=== PATIENT | female | born 1980 | race Caucasian/White ===

== ENCOUNTER 2018-07-30 06:55 | Day surgery (SDC) | payer OTHER ==
--- NOTE | 2018-07-29 18:02 | PDGENHP ---
History and Physical - Chief Complaint pre-op for laparoscopic right ovarian cystectomy, bilateral salpingectomy - History of Present Illness 37 A1 with a complex right ovarian cyst which has been increasing in size. Initially seen 10/29/2017 - to get IUD removed - no strings. US showed IUD embedded in uterine wall. R ovary noted to have 2 cysts or a septated cyst. 12/02/17 IUD removed with US guidance. R ov still with 2 cysts or a septated cyst, 7.8 x 5.2 x 7.4cm. 04/16/18 [facility] done at [facility] - R ov cyst 5.2 x 5.4 x 6.7cm cyst with thin internal septations and reticular densities - suggestive of complex hemorrhagic cyst. 06/17/18 US at [facility] - R ov cyst 9.5 x 6.0 x 4.7cm complex. L ov with 1.4 x 1.6 x 1.9cm isoechoic nodule. No free fluid. After continued observation, due to increasing size of cyst - agrees to proceed with surgical removal of cysts. Due to family hx of ovarian cancer - pAunt with ovarian cancer, and myah GEORGES with breast cancer, pt desires oncoreduction with tubal removal, and she is 100 % done with childbearing. She has 2 children, ages 5 and 6. History Information - Allergies/Home Medication List Allergies/Adverse Reactions: penicillin V [Penicillin V] Allergy (Unknown, Verified 07/29/18 16:23) Home Medications: 1 tab PO DAILY 01/07/13 [Last Taken Unknown] Feosol 1 tab PO DAILY 04/27/13 [Last Taken Unknown] Probiotic 1 cap PO DAILY 04/27/13 [Last Taken Unknown] I have personally reviewed and updated: family history, medical history, social history, surgical history - Past Medical History no pertinent PMH - Surgical History Additional surgical history: C/S x2. TAB x 1 - Family History Additional family history: P Aunt ovarian cancer in her 20s. Father - brain cancer. 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 Review of Systems Review of Systems: ROS: 10pt was reviewed & negative except for what was stated in HPI & below Physical Exam Physical Exam: wt 99.8 lb 122/80 98.4 82 HR 90% on RA Constitutional: no apparent distress, appears nourished Eyes: PERRL, anicteric sclera, EOMI Ears, Nose, Mouth, Throat: moist mucous membranes, hearing normal, ears appear normal Cardiovascular: regular rate and rhythym Respiratory: no respiratory distress, no rales or rhonchi, clear to auscultation Gastrointestinal: normoactive bowel sounds, soft, non-tender abdomen, no palpable masses Genitourinary: no bladder fullness Skin: warm, normal color Musculoskeletal: full muscle strength Neurologic: AAOx3, sensation intact bilaterally Lab Data & Imaging Review 14.7 / 42.6 plt 194 Assessment & Plan Assessment: 37 A1 with persistent complex R ovarian cyst, L ov with 1.9cm isoechoic nodule, family history of ovarian cancer. Plan: laparoscopic R ovarian and L ovarian cystectomy and bilateral salpingectomy on 07/30/18. Written informed consent obtained. Printed pre and post surg info given including ERAS protocol. Romana Hui MD, FACOG
[2018-07-30] MEDS ORDERED: LR 1,000 ML IV ONE (07:09)
[2018-07-30] MEDS ORDERED: BUPIVACAINE/EPI 0.25% 30 ML SDV ONE (07:45)
[2018-07-30] MEDS ORDERED: SILVER NITRATE APPLICATOR 1 APPL TP ONE (07:45)
[2018-07-30] MEDS ORDERED: MIDAZOLAM 2 MG/2 ML VIAL ONE (08:03)
[2018-07-30] MEDS ORDERED: MIDAZOLAM 2 MG/2 ML VIAL IVP ONE (08:03)
--- NOTE | 2018-07-30 08:03 | PDANEPAE ---
ANE History of Present Illness ovarian cyst and pelvic pain, here for laparoscopic removal of ovaries, tubes ANE Past Medical History - Cardiovascular History Hx Hypertension: No Hx Arrhythmias: No Hx Chest Pain: No Hx Coronary Artery / Peripheral Vascular Disease: No Hx CHF / Valvular Disease: No Hx Palpitations: No - Pulmonary History Hx COPD: No Hx Asthma/Reactive Airway Disease: No Hx Recent Upper Respiratory Infection: No Hx Oxygen in Use at Home: No Hx Sleep Apnea: No Sleep Apnea Screening Result - Last Documented: Negative Pulmonary History Comment: SEASONAL ALLERGIES - Neurologic History Hx Cerebrovascular Accident: No Hx Seizures: No Hx Dementia: No - Endocrine History Hx Diabetes: No - Renal History Hx Renal Disorders: No - Liver History Hx Hepatic Disorders: No - Neurological & Psychiatric Hx Hx Neurological and Psychiatric Disorders: Yes Neurological / Psychiatric History Comment: Reynuards - Cancer History Hx Cancer: No - Congenital Disorder History Hx Congenital Disorders: No - GI History Hx Gastrointestinal Disorders: No - Other Health History Other Health History: seasonal allergies. ovarian cyst - Chronic Pain History Chronic Pain: No - Surgical History Prior Surgeries: C-SECTIONS X 2 ANE Review of Systems Review of Systems: - Exercise capacity METS (RN): 6 METS ANE Patient History - Allergies Allergies/Adverse Reactions: penicillin V [Penicillin V] Allergy (Unknown, Verified 07/30/18 07:11) - Home Medications Home Medications: 1 tab PO DAILY 01/07/13 [Last Taken Unknown] Feosol 1 tab PO DAILY 04/27/13 [Last Taken Unknown] Probiotic 1 cap PO DAILY 04/27/13 [Last Taken Unknown] - NPO status NPO Since - Liquids (Date): 07/30/18 NPO Since - Liquids (Time): 05:00 NPO Since - Solids (Date): 07/29/18 NPO Since - Solids (Time): 20:00 - Smoking Hx Smoking Status: Former smoker - Alcohol Use Alcohol Use: Rarely - Family Anes Hx Family Hx Anesthesia Complications: NONE ANE Labs/Vital Signs - Vital Signs Blood Pressure: 136/87 Heart Rate: 53 Respiratory Rate: 16 O2 Sat (%): 98 Height: 157.48 cm Weight: 45.359 kg ANE Physical Exam - Airway Neck exam: FROM Mallampati Score: Class 1 Mouth exam: normal dental/mouth exam - Pulmonary Pulmonary: no respiratory distress, no rales or rhonchi - Cardiovascular Cardiovascular: regular rate and rhythym, no murmur, rub, or gallop - ASA Status ASA Status: II ANE Anesthesia Plan Anesthesia Plan: general endotracheal anesthesia Total IV Anesthesia: No
--- NOTE | 2018-07-30 08:06 | PDHPUP ---
History & Physical Update H&P update statement: This history and physical update is based on an assessment of the patient which was completed after admission or registration (within 24 hours), but prior to the surgery/procedure. H&P update: H&P reviewed & patient examined, no change in patient's condition since H&P completed
[2018-07-30] MEDS ORDERED: PROPOFOL 200 MG/20 ML VIAL ONE (08:11)
[2018-07-30] MEDS ORDERED: ROCURONIUM 50 MG/5 ML VIAL ONE (08:11)
[2018-07-30] MEDS ORDERED: fentaNYL 100 MCG/2 ML INJ ONE ×2 (08:11→10:19)
[2018-07-30] MEDS ORDERED: DEXAMETHASONE 4 MG/ML VIAL ONE (08:11)
[2018-07-30] MEDS ORDERED: LIDOCAINE 2% 100 MG/5 ML SYR ONE (08:11)
[2018-07-30] MEDS ORDERED: HYDROmorphONE/DILAUDID 2 MG/ML INJ ONE (09:07)
[2018-07-30] MEDS ORDERED: SUGAMMADEX SODIUM 200 MG/2 ML VIAL IVP ONE (09:54)
[2018-07-30] MEDS ORDERED: ONDANSETRON 4 MG/2 ML VIAL ONE (09:54)
[2018-07-30] MEDS ORDERED: HYDROmorphONE/DILAUDID 1 MG/ML INJ ONE (10:19)
--- NOTE | 2018-07-30 10:20 | POSTOPPROG ---
Post Op Note Date of Operation: 07/30/18 Surgeon: Romana Hui Training Project Manager: Vanessa Bolton Anesthesiologist: Nicole Engel Anesthesia: GET(General Endotracheal) Pre-op Diagnosis: right ovarian cyst, desired ovarian onco-reduction Post-op Diagnosis: same Indication: persistent, growing, right ovarian cyst Procedure: laparoscopic right ovarian cystectomy and bilateral salpingectomy Findings: large 10cm right ovarian cyst with clear serous fluid Inf/Abcess present in the surg proc area at time of surgery?: No EBL: Minimal Total fluids administered: 1400 Complications: none Bowel Protocol: No Clean Closure Performed: No Specimen(s): bilateral Fallopian tubes Right ovarian cyst
[2018-07-30] MEDS: fentaNYL 100 MCG/2 ML INJ IVP PRN ×2 (10:25→10:49)
[2018-07-30] MEDS ORDERED: KETOROLAC 15 MG/1 ML SDV IVP ONE (10:30)
[2018-07-30] MEDS ORDERED: oxyCODONE IR 5 MG TAB PO PRN (10:31)
[2018-07-30] MEDS ORDERED: HYDROmorphONE/DILAUDID 1 MG/ML INJ IVP PRN (10:33)
[2018-07-30] MEDS ORDERED: PROMETHAZINE HCL 25 MG/ML INJ IVP PRN (10:33)
[2018-07-30] MEDS ORDERED: NALOXONE HCL 0.4 MG/ML INJ IVP PRN (10:33)
[2018-07-30] MEDS ORDERED: ACETAMINOPHEN 500 MG TAB PO PRN (10:33)
[2018-07-30] MEDS ORDERED: METOCLOPRAMIDE 10 MG/2 ML VIAL IVP PRN (10:33)
[2018-07-30] MEDS ORDERED: DIAZEPAM 10 MG/2 ML SYR IVP PRN (10:33)
[2018-07-30] MEDS ORDERED: MEPERIDINE 25 MG/0.5 ML AMP IVP PRN (10:33)
[2018-07-30] MEDS ORDERED: LR 500 ML IV PRN (10:33)
--- NOTE | 2018-07-30 10:33 | POSTANESTH ---
Post Anesthetic Evaluation Cardiovascular Status: Normal, Stable Respiratory Status: Normal, Stable Level of Consciousness/Mental Status: Can Participate in Eval, Mildly Sleepy, Arousable Pain Control: Adequate, Prn Tx Ordered Nausea/Vomiting Control: Adequate, Prn Tx Ordered Complications Possibly Related to Anesthesia: None Noted
[2018-07-30] MEDS ORDERED: KETOROLAC 15 MG/1 ML SDV ONE (10:38)
[2018-07-30] MEDS ORDERED: oxyCODONE IR 5 MG TAB ONE (10:52)
[2018-07-30 11:19] VITALS: BP 118/77
[2018-07-30] MEDS ORDERED: DIAZEPAM 10 MG/2 ML SYR ONE (11:23)
--- NOTE | 2018-07-30 13:25 | GOP ---
[f rep st] OPERATIVE REPORT DATE OF OPERATION: 07/30/2018 SURGEON: Romana Hui MD BIG DATA ANALYTICS LEAD: Vanessa Bolton DO. ANESTHESIA: General endotracheal. ANESTHESIOLOGIST: Isra Engel DO. PREOPERATIVE DIAGNOSIS: 1. Right ovarian cyst. 2. Desired ovarian onco-risk reduction. POSTOPERATIVE DIAGNOSIS: 1. Right ovarian cyst. 2. Desired ovarian onco-risk reduction. PROCEDURE PERFORMED: FINDINGS: A large 10 cm right ovarian cyst with clear serous fluid. Normal- appearing tubes bilaterally. Normal-appearing left ovary. Normal-appearing appendix. Normal-appearing smooth liver edge. SPECIMENS: Bilateral fallopian tubes and right ovarian cyst. ESTIMATED BLOOD LOSS: 20 mL. INDICATIONS: A 37-year-old 3, para 2, A 1 female with a persistent enlarging right ovarian cyst. She also has a family history of ovarian and breast cancer and desired onco-risk reduction with bilateral salpingectomy. Her has already had a vasectomy. DESCRIPTION OF PROCEDURE: Written informed consent was reviewed again with the patient in the preoperative area. She is then taken to the operating room and placed in the dorsal supine position. When general anesthesia was deemed adequate, she was placed in the modified dorsal lithotomy position using the Yellofins stirrups. A WHO time-out was performed. Her vagina, perineum and abdomen were sterilely prepared and draped in the standard fashion. A urinary catheter was placed in her bladder. A speculum was inserted into the vagina and a tenaculum was placed on the anterior lip of the cervix. An acorn cannula was inserted and fastened to the tenaculum. Gloves were changed and attention was turned to the abdomen. Marcaine 0.25% with epinephrine was used to infiltrate the infraumbilical area. An incision was made sharply in the infraumbilical area and taken down sharply to the fascia. The fascia was able to be easily grasped with Rik clamps and incised. The fascia was then grasped and an 0 Vicryl pursestring suture was placed around the fascial opening. Ran trocar was then inserted and entrance of the camera confirmed entrance into the peritoneum. The Yoo was fastened to the fascia with the 0 Vicryl. The patient was placed in Trendelenburg. The abdomen was insufflated. Right and left lower quadrant 5 mm ports were placed after infiltrating with local anesthetic. These were placed under direct visualization. Graspers were used to elevate the right ovary and identify the large cyst. After thorough examination, it appeared that this likely contained serous fluid. A large needle was inserted through the port and punctured the cyst and using a syringe , an abundant amount of clear serous fluid was removed. Once the ovary had been significantly decompressed, the needle was removed. The cyst wall was then able to be grasped along with the outer ovarian tissue and a combination of blunt, sharp and twisting dissection was used to remove the cyst from the remaining ovary. The Ligasure device was then used to cut across the base of the cyst using cautery. The right tube was grasped and elevated and the LigaSure was used to clamp, cauterize and cut along the mesosalpinx and then across the cornu. This was repeated on the left side and both tubes were removed. Abundant suction and irrigation was performed. Excellent hemostasis was noted at all of the operative sites. The abdomen was partially desufflated and excellent hemostasis was still noted. Prior to desufflation, each ureter was identified and noted to be peristalsing. The trocars were then removed under direct visualization. The infraumbilical port was then closed with 0 Vicryl pursestring suture. The skin incisions were closed with 4-0 Monocryl in a subcuticular fashion and covered with skin glue. Sponge, lap and needle counts were correct x2. The patient was extubated in the operating room and taken to the recovery room in stable condition. Her was given a prescription to fill for 5 mg oxycodone #14, and she will be following up in the office in 1 to 2 weeks for a postoperative check. URINE OUTPUT: Per catheter, which was removed at the end the procedure, is 50 mL. IV FLUIDS: Administered 1400 mL. COMPLICATIONS: None. /[id number]/MODL MTDD
== END 2018-07-30 12:18 | disposition home or self-care (01) ==
LOC: FSGY 06:55
PROVIDERS: ATTEND Hospitalist
DX: D27.0 Benign neoplasm of right ovary (principal); Z40.03 Encounter for prophylactic removal of fallopian tube(s); Z80.41 Family history of malignant neoplasm of ovary; Z80.3 Family history of malignant neoplasm of breast; Z87.891 Personal history of nicotine dependence
CPT/HCPCS: J1100; J1170; J1885; J2001; J2250; J2405; J2704; J3010; J3360

== ENCOUNTER 2018-08-29 16:15 | Emergency (ER) | payer OTHER | END 2018-08-29 18:38 | disposition home or self-care (01) ==